=== PATIENT | male | born 1950 | race Caucasian/White ===

== ENCOUNTER 2020-06-21 16:29 | Emergency (ER) | payer OTHER, MEDICARE, SELFPAY ==
[2020-06-21] VITALS (17 sets, daily range): BP systolic 139–186; BP diastolic 62–91; PULSE 105–120; RESP 14–29; TEMP 37.7–39.3; O2SAT 92–98
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
--- NOTE | ~2020-06-21 | XR_ITS ---
XR chest 1V portable DATE: 06/21/2020 17:46 INDICATION: Altered mental status TECHNIQUE: Portable AP chest on 06/21/2020 at 1747 hours COMPARISON: 05/19/2014 AP and lateral chest FINDINGS: Normal heart size. There is aortic calcification and unfolding. No hilar or mediastinal e nlargement. No pulmonary infiltrate or consolidation, pulmonary vascular congestion or pleural effus ion or pneumothorax. Degenerative spurring of the thoracic spine. IMPRESSION: No active cardiopulmonary disease Reviewed, dictated and finalized at location [facility]. EL BUS MECHANIC
--- NOTE | 2020-06-21 16:50 | ECG_ITS ---
Measurements Intervals [place] Rate: 94 P: 72 PA: 157 QRS: 255 QRSD: 82 T: 77 QT: 312 QTc: 391 Interpretive Statements WANDERING PACEMAKER ABNORMAL ECG Electronically Signed On 06-21-2020 19:22:46 PADDING GLUER by Jadiel Arnett D.O.
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
[2020-06-21 17:48] LABS: Basophils Percent Auto 0.2 % (0.2-1.2); Eosinophils Percent Auto 8.3 % (0-4.4); Hematocrit 36.5 % (42.0-52.0); Hemoglobin 12.3 g/dL (14.0-18.0); Immature Granulocyte Absolute 0.06 K/mm3 (0.00-0.031); Immature Granulocyte Percent A 0.5 % (0-0.5); Lymphocytes Percent Auto 5.7 % (18.3-44.2); Mean Corpuscular HGB Conc 33.7 g/dl (32-36); Mean Corpuscular Hemoglobin 30.5 pg (26-34); Mean Corpuscular Volume 90.6 fl (80-100); Mean Platelet Volume 9.2 fl (7.4-10.4); Monocytes Absolute Auto 0.7 K/mm3 (0.1-0.6); Monocytes Percent Auto 5.4 % (2.6-8.5); Neutrophils Absolute Auto 9.9 K/mm3 (1.3-6.7); Neutrophils Percent Auto 79.9 % (45.5-73.1); Platelet Count Result 249 k/mm3 (150-375); Red Blood Count 4.03 M/mm3 (4.6-6.20); Red Cell Distribution Width 13.4 % (11.5-14.5); White Blood Count 12.4 K/mm3 (4.5-10.0)
[2020-06-21 17:55] LABS: Add Urine Microscopic? YES; Appearance Urine Clear (Clear); Bacteria Urine Trace /hpf; Bilirubin Urine Negative (Negative); Blood Urine Negative (Negative); Color Urine Yellow (Yellow); Glucose Urine UA 3+ mg/dL (Negative); Hyaline Casts Urine 20-29 /lpf; Ketones Urine 1+ mg/dL (Negative); Leukocyte Esterase Ur Negative LEU/UL (Negative); Mucus Urine Rare /lpf; Nitrate Urine Negative (Negative); Protein Urine 1+ mg/dL (Negative); RBC Urine 0-2 /hpf (0-2); Specific Grav Ur 1.016 (1.001-1.035); Squamous Epithelial Cell Urine Rare /hpf (Few); Urobilinogen Urine Negative mg/dL (<2.0); WBC Urine 0-3 /hpf
[2020-06-21] MEDS: SODIUM CHLORIDE 0.9% IV 1,000 ML 999 ML IV CONT (17:57)
[2020-06-21 17:58] LABS: Prothrombin Time 14.2 Seconds (11.1-14.7)
[2020-06-21 17:59] LABS: Partial Thromboplastin Time 25.8 SECONDS (22.3-36.8)
--- NOTE | 2020-06-21 18:07 | PC.NURSE ---
BLADDER SCAN NOTED TO HAVE GREATER THAN 800 ML PROVIDER AWARE
[2020-06-21 18:08] LABS: Lactic Acid Reflex 2.9 mmol/L (0.7-2.1)
[2020-06-21 18:10] LABS: Alanine Aminotransferase 24 U/L (4-50); Alkaline Phosphatase 115 U/L (38-126); Anion Gap 8 mmol/L (8-16); Aspartate Amino Transferase 34 U/L (17-59); Bilirubin,Total 0.4 mg/dL (0.2-1.3); Blood Urea Nitrogen 17 mg/dL (9-20); Calcium 9.5 mg/dL (8.4-10.2); Carbon Dioxide 28 mmol/L (22-30); Chloride 98 mmol/L (98-107); Estimated CRCL calculation 97 ml/min; Estimated Glomerular Filt Rate > 60; Glucose 344 mg/dL (75-110); Potassium 4.3 mmol/L (3.4-5.0); Sodium 134 mmol/L (137-145)
--- NOTE | 2020-06-21 18:15 | PC.NURSE ---
#16 fr tolbert placed per physician order after bladder scan. clear yellow urine immediately draining.
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
[2020-06-21 18:54] LABS: Ethanol < 10 mg/dL (<10)
--- NOTE | 2020-06-21 19:08 | PC.NURSE ---
patient back from CT. will empty tolbert and recheck temperature.
--- NOTE | 2020-06-21 19:40 | PC.NURSE ---
IV antibiotic started. patient more alert. temp now 100.5. in room. patient is A/O x 4. denies pain. tolbert draining. on cardiac tech.
[2020-06-21 19:48] LABS: Amphetamine Screen Urine Negative (Negative); Barbiturate Screen Urine Positive (Negative); Benzodiazepines Screen Urine Negative (Negative); Cannabinoid Screen Urine Negative (Negative); Cocaine Screen Urine Negative (Negative); Methadone Screen Urine Negative (Negative); Opiate Screen Urine Positive (Negative); Phencyclidine Screen Urine Negative (Negative)
--- NOTE | 2020-06-21 19:50 | PC.NURSE ---
provider in room to discuss admission with patient and his . patient alert and oriented at this time. wants to go home. no further fever. ok to DC tolbert per provider. Tolbert removed. both SL removed. dressing to right arm abrasion.
--- NOTE | 2020-06-21 20:00 | PC.NURSE ---
patient assisted to get out of bed and stand. patient is stable on his feet now. ambulated to ED restroom with steady gait. discharge instructions reviewed with patient's . patient refused wheelchair to exit.
[2020-06-21 20:46] LABS: Reflex Lactic Acid Yes or No Add Lactic
[2020-06-21 21:31] LABS: Glucose Point of Care 372 (65-105)
[2020-06-22 13:28] LABS: SARS-CoV-2 RNA PCR Negative
== END 2020-06-21 21:26 | disposition home or self-care (01) ==
PROVIDERS: Emergency Medicine; General Practice; Emergency Provider Emergency Medicine
DX: A41.9 Sepsis, unspecified organism (principal); R41.0 Disorientation, unspecified; B34.9 Viral infection, unspecified; Z20.822 Contact with and (suspected) exposure to COVID-19; E11.9 Type 2 diabetes mellitus without complications; Z79.84 Long term (current) use of oral hypoglycemic drugs; R94.31 Abnormal electrocardiogram [ECG] [EKG]; I67.2 Cerebral atherosclerosis; Z95.0 Presence of cardiac pacemaker; V43.52XA Car driver injured in collision with other type car in traffic accident, initial encounter
CPT/HCPCS: 36415; 70450; 71045; 71260; 72125; 74177; 80053; 80307; 81001; 82948; 83605; 85025; 85610; 85730; 86140; 87040; 87804; 93005; 96365; 96367; 99284; C9803; J0131; J0692; J7030; Q9967; U0003; U0005